=== PATIENT | female | born 1960 | race Two or more races ===

== ENCOUNTER 2016-07-11 12:15 | Emergency (ER) | payer SELFPAY ==
[~2016-07-11] VITALS: Ht 162.6 cm; Wt 59.0 kg
[2016-07-11] MEDS ORDERED: IBUPROFEN 400 MG TABLET ONE (12:27)
[2016-07-11] MEDS: IBUPROFEN 400 MG TABLET PO ONE (12:32)
[2016-07-11 13:12] VITALS: BP 164/99
== END 2016-07-11 13:12 | disposition home or self-care (01) ==
LOC: ER 12:17
DX: S46.911A Strain of unspecified muscle, fascia and tendon at shoulder and upper arm level, right arm, initial encounter (principal); S13.9XXA Sprain of joints and ligaments of unspecified parts of neck, initial encounter; S29.012A Strain of muscle and tendon of back wall of thorax, initial encounter; V43.52XA Car driver injured in collision with other type car in traffic accident, initial encounter; Y93.89 Activity, other specified; Y92.488 Other paved roadways as the place of occurrence of the external cause; Y99.8 Other external cause status
CPT/HCPCS: 99283; A4606 ×2; Z7610 ×2